=== PATIENT | female | born 1995 | race Hispanic/Latino ===

== ENCOUNTER 2017-05-06 05:55 | Day surgery (SDC) | payer OTHER ==
[2017-05-06] MEDS ORDERED: Propofol 10 mg/ml Inj (20 ML) ONE (07:45)
[2017-05-06] MEDS ORDERED: Midazolam 2 MG/2 ML VIAL ONE (07:45)
[2017-05-06] MEDS ORDERED: ceFAZolin IV 2 gm in Dextrose 0 GM/0 ML BAG IVPB ONE (07:53)
[2017-05-06] MEDS ORDERED: Rocuronium 10 mg/ml (5 ml) ONE ×2 (07:53→09:47)
[2017-05-06] MEDS: Bupivacaine-Epi 0.25%-1:200,000 PF Inj ONE ×2 (09:00→10:09)
[2017-05-06] MEDS ORDERED: Lactated Ringer's 1,000 ML IV ONE ×2 (09:00→09:10)
[2017-05-06] MEDS ORDERED: ceFAZolin IV 1 gm in Dextrose 1 GM/50 ML BAG IVPB ONE (09:25)
[2017-05-06] MEDS ORDERED: Neostigmine Methylsulfate 3mg/3ml Syringe IV ONE (10:34)
[2017-05-06] MEDS ORDERED: Oxycodone/Acetaminophen 5/325 mg Tab PO PRN (10:53)
[2017-05-06] MEDS ORDERED: HYDROmorphone 0.5 mg/0.5 ml ISec IVP PRN (10:54)
--- NOTE | 2017-05-06 10:54 | PCM.SURG1 ---
Surgeon's Initial Post Op Note - Surgeon's Notes Surgeon: jeffrey laird md Hot Stamp Operator: trisha brooks, gregoria naylor Type of Anesthesia: General Endo, Local Pre-Operative Diagnosis: chronic pelvic pain. abnormal uteine bleeding. severe dysparunia. PCOS Operative Findings: endometriosis on posterior culdesac wall and pelvic side wall on right side. PCOS bilateraly with enlarged ovaries multiple cysts on both ovaries. Bladder with multiple hunner lessions c/w interstitial cystitis Post-Operative Diagnosis: enbometriosis. chronic pelvic pain. abnormal uteine bleeding. severe dysparunia. PCOS. Intestitial cystititis Operation Performed: robotic assisted excision of endomtriosis,. diagnostic cystoscopy Specimen/Specimens Removed: endometrioma Estimated Blood Loss: EBL {In ML}: 5 Blood Products Given: N/A Drains Used: No Drains Post-Op Condition: Good Date of Surgery/Procedure: 05/06/17 Time of Surgery/Procedure: 10:54
--- NOTE | 2017-05-06 10:59 | PCM.OP ---
Operative Report - Operative Report Date of Surgery/Procedure: 05/06/17 Time of Surgery/Procedure: 10:56 Surgeon: jeffrey laird md House Fellow: trisha brooks, gregoria naylor Anesthesia/Sedation: general with ET tube Pre-Operative Diagnosis: Chronic pelvic pain. abnormal uteine bleeding. severe dysparunia. PCOS. Intestitial cystititis Post-Operative Diagnosis: Endometriosis. chronic pelvic pain. abnormal uteine bleeding. severe dysparunia. PCOS. Intestitial cystititis Indication for Surgery: worsening chronic pelvic pain, dysparunia and urinary urgency and abnormal uteirne bleeding. failed conservative managnemnt Operative Findings: endometriosis stage 3, multiple endometriosis lessions in culdesac, ovaries enlarged with multiple cysts on both ovaries. bladder with multiple hunner lessions throughtout c/w IC Procedure/Operation Description: multiport robotic excision of endometrios and diagnostic cystoscopy. . Detailed operative procedure. This is a 21 years old female with chronic pelvic pain, dyspareunia, abnormal uterine bleeding infertility and strong possibility of endometriosis. This patient described this pain as debilitating and limiting her daily activity and adversely affecting her quality of life. Following a complete work up at the office which included a U/S, vaginal cultures, hematology and chemistry, decision was made to proceed with a robotic assisted excision of endometriosis possible lysis of adhesions. After proper consent was obtained from the patient , she was taken to the operating room, placed in lithotomy position, her legs placed in adjustable stirrups. Careful attention was placed to avoid hyperflexion or hyper-rotation of the lower extremities. Exam under anesthesia revealed a non-mobile small uterus, with adnexal fullness bilaterally, and nodularity appreciated the posterior fornix. She was prepped and draped for a robotic excision of endometriosis. Oscar catheter was placed in sterile condition. Weighted speculum was placed in the vagina, the anterior lip of the cervix was grasped with a tenaculum, and the cervix was dilated to allow a V- Care uterine manipulator insertion into the endometrial cavity. While tenting the abdominal wall, a veres needle was inserted through the umbilicus and a pneumoperitoneum was obtained. A 1cm vertical incision was made at the umbilical fold and a trocar and sleeve were introduced. The patient was placed in Trendelenburg position. A robotic camera was introduced and an initial survey of the pelvic cavity revealed extensive peritoneal adhesions. Multiple endometriosis lesions noted on the posterior cul-de-sac wall close proximity to the right uterosacral ligament and right pelvic sidewall. Surface of the posterior cul-de-sac was distorted evidence of endometriosis with white and brown spots lesions or consistent with endometriosis. Two robotic ports were used for the procedure and were inserted through 5 mm incisions. The first port was inserted on the right side approximately 5 cm cephalad to the superior iliac crest; the second port was placed in a mirror image location on the contralateral side. Lateral side docking was achieved with the robot with no difficulty. A monopolar shear was inserted through the port on the right side and a PK was inserted through the port on the left side. Both ureters were visualized with peristalsis prior to the excision and ablation of endometriosis. Meticulous lysis of peritoneal adhesions and ablation of endometriosis was accomplished with the malathi and the PK. In summary, enterolysis as well as, ovariolysis as well as salpingo-lysis was completed to restore somewhat of normal anatomy. Ablation of superficial endometriosis lesion was completed with monopolar malathi careful attention was paid to avoid close proximity to ureters and great vessels. a dominant endometrioma was noted on the posterior cul-de-sac in the midline, decision was excised and sent to pathology labeled appropriately. The cluster of endometriosis lesions were noted on the patient's right pelvic sidewall, decision excised and cauterized sent to pathology labeled appropriately. The abdomen was throughout irrigated and cleared of clots and debris. The ureters were once again visualized with peristalsis and excellent hemostasis noted throughout. Flow-seal and inter- seed to prevent further adhesions placed over the excision / ablation beds. All instruments were removed under direct visualization; the robotic arms were undocked. Pneumoperitoneum was reduced. Due to the nature of her chronic pain as well as to close proximity old endometriomato the ureteron the right side, decision was made to complete a diagnostic cystoscopy. 30tely 300 mL of normal saline, and a survey of the bladder and abdomen was completed. Right and left ureter orifices appeared normal ureters were effluxing urine freely. Urethra appeared normal. Multiple lesions were notedwithin the bladder mucosa manually within the trigone area. This is consistent with interstitial cystitis and reductive chronic pelvic pain and bladder pain. The camera port was closed at a fascial layer with a 2-0 vicryl. All skin incisions were closed with a 4-0 monocryl in a subcuticular fashion. The Vcare was removed. Prior to incision, patient received prophylactic antibiotics (Ancef), prior to closure, sponge lap and needle count were correct times two. Patient was taken to recovery room under stable condition. Estimated Blood Loss: 5 Blood Replaced: none Sponge/Instrument Count: correct times 2 Drains: none Complications: none Specimen: endometrios lessions Discharge & Condition: discharge home with criteria met
--- NOTE | 2017-05-06 11:06 | CP.PCM.PN ---
Subjective - Date & Time of Evaluation Date of Evaluation: 05/06/17 Time of Evaluation: 11:05 - Subjective Subjective: [place] [employer] COORDINATOR patient report reviewed, no prior CDS. Patient counseled on the risks of addiction, physical or psychological dependence, and overdose associated with opioid drugs and the danger of taking opioid drugs with alcohol and other central nervous system depressants, and cautioned patient on storage and disposal. Objective - Vital Signs/Intake and Output Vital Signs (last 24 hours): Temp Pulse Resp BP Pulse Ox 98 F 81 18 102/65 98 05/06/17 06:44 05/06/17 06:44 05/06/17 06:44 05/06/17 06:44 05/06/17 06:44 Intake and Output: 05/06/17 05/06/17 06:59 18:59 Output Total 900 Balance -900 - Medications Medications: Current Medications Hydromorphone HCl (Dilaudid) 0.5 mg IVP Q5M PRN PRN Reason: Pain, severe (8-10) Stop: 05/06/17 12:56 Ondansetron HCl (Zofran Inj) 4 mg IVP ONCE PRN PRN Reason: Nausea/Vomiting Stop: 05/06/17 12:57 Oxycodone/Acetaminophen (Percocet 5/325 Mg Tab) 1 tab PO Q4 PRN PRN Reason: Pain, moderate (4-7) Stop: 05/09/17 10:54
[2017-05-06 12:59] VITALS: BP 126/70; PULSE 72; RESP 18; TEMP 97; O2SAT 100
== END 2017-05-06 16:40 | disposition home or self-care (01) ==
LOC: C.SDS 05:55
PROVIDERS: ATTEND Obstetrics & Gynecology
DX: E28.2 Polycystic ovarian syndrome (principal); N80.3 Endometriosis of pelvic peritoneum; G89.29 Other chronic pain; N83.202 Unspecified ovarian cyst, left side; N83.201 Unspecified ovarian cyst, right side; N30.10 Interstitial cystitis (chronic) without hematuria; N94.10 Unspecified dyspareunia; N92.6 Irregular menstruation, unspecified
CPT/HCPCS: 36415; 52000; 58662; 86850; 86900; 88304; 88305; C2615; J0690; J1100; J1170; J1885; J2001; J2250; J2405; J2704; J2710; J3010; J7120